=== PATIENT | female | born 1930 | race Caucasian/White ===

== ENCOUNTER 2018-09-23 14:52 | Inpatient (IN) | payer MEDICARE | END 2018-09-26 14:30 | LOC: ER 14:52 → ED HOLD 18:11 → ORTHO 4S 19:20 | DX: S32.592A Other specified fracture of left pubis, initial encounter for closed fracture (principal); E86.0 Dehydration; S70.02XA Contusion of left hip, initial encounter; E78.5 Hyperlipidemia, unspecified; S32.049S Unspecified fracture of fourth lumbar vertebra, sequela; S32.10XS Unspecified fracture of sacrum, sequela ==